=== PATIENT | female | born 1950 | race Caucasian/White ===

== ENCOUNTER → 2018-07-21 08:55 | Outpatient (BNVA) | payer MEDICARE, OTHER, SELFPAY | PROVIDERS: PCP Family Medicine; Visit Provider Orthopaedic Surgery | DX: M17.11 Unilateral primary osteoarthritis, right knee (principal) | CPT/HCPCS: 20610; 99213; J1040 ==

== ENCOUNTER → 2018-10-20 09:00 | Outpatient (BNVA) | payer MEDICARE, OTHER, SELFPAY | PROVIDERS: PCP Family Medicine; Referring Provider Family Medicine; Visit Provider Orthopaedic Surgery | DX: M17.11 Unilateral primary osteoarthritis, right knee (principal) | CPT/HCPCS: 20610; 99211; 99213; J7325 ==

== ENCOUNTER → 2019-01-19 09:12 | Outpatient (BNVA) | payer MEDICARE, OTHER, SELFPAY | PROVIDERS: PCP Family Medicine; Referring Provider Family Medicine; Visit Provider Orthopaedic Surgery | DX: M17.11 Unilateral primary osteoarthritis, right knee (principal) | CPT/HCPCS: 20610; 99211; 99212; J1040 ==

== ENCOUNTER → 2019-04-20 08:51 | Outpatient (BNVA) | payer MEDICARE, OTHER, SELFPAY | PROVIDERS: PCP Family Medicine; Referring Provider Family Medicine; Visit Provider Orthopaedic Surgery | DX: M17.11 Unilateral primary osteoarthritis, right knee (principal) | CPT/HCPCS: 20610; 99211; 99212; J1040 ==

== ENCOUNTER 2019-07-28 10:55 | Outpatient (CLI) | payer MEDICARE, OTHER, SELFPAY ==
--- NOTE | 2019-07-28 10:42 | DI.RAD_ITS ---
EXAM: XR KNEE RT 3V AP,LAT,VINICIO INDICATION: OA right knee. COMPARISON: RIGHT KNEE 3 VIEWS from 10/15/2017 TECHNIQUE: 2D digital imaging was performed. FINDINGS: Narrowing of the medial tibiofemoral joint space is identified. There is articular sclerosis. Mild m edial subluxation ofthe femur on the tibial plateau. Mild degenerative changes involving the patello femoral joint. There is no evidence of a joint effusion. IMPRESSION: Findings are consistent with severe DJD.
== END 2019-07-28 11:15 ==
PROVIDERS: PCP Family Medicine; Visit Provider Physician Assistant
DX: M25.561 Pain in right knee (principal); M17.11 Unilateral primary osteoarthritis, right knee
CPT/HCPCS: 20610; 73562; 99214; J1030

== ENCOUNTER 2019-09-21 10:41 | Outpatient (CLI) | payer MEDICARE, OTHER, SELFPAY ==
--- NOTE | 2019-09-21 08:40 | DI.RAD_ITS ---
EXAM: XR STANDING ALIGNMENT INDICATION: KNEE PAIN. COMPARISON: No exams were available for comparison TECHNIQUE: 2D digital imaging was performed. FINDINGS: In the right knee, there is moderate narrowing of the medial femoral tibial joint space. Mild periar ticular spurring is seen both medially and laterally. In the left knee, there is mild periarticular spurring and joint space narrowing medially. The right lower extremity measures 86.6 cm. The left lower extremity measures 87.5 cm. IMPRESSION: Degenerative changes in the knees bilaterally.
== END 2019-09-21 11:01 ==
PROVIDERS: PCP Family Medicine; Visit Provider Student in an Organized Health Care Education/Training Program
DX: M25.561 Pain in right knee (principal); M25.562 Pain in left knee; M17.11 Unilateral primary osteoarthritis, right knee; M21.70 Unequal limb length (acquired), unspecified site; M17.12 Unilateral primary osteoarthritis, left knee; D36.7 Benign neoplasm of other specified sites
CPT/HCPCS: 99214; 77073

== ENCOUNTER 2019-10-20 09:13 | Outpatient (CLI) | payer MEDICARE, OTHER, SELFPAY ==
[2019-10-20 10:30] LABS: HCT 40.2 % (36.0-46.0); HGB 13.5 g/dL (12.0-15.5); Mean Corp. HGB Concentration 33.6 g/dL (32.0-36.0); Mean Corpuscular Hemoglobin 31.1 pg (27.0-33.0); Mean Corpuscular Volume 92.6 fL (80-95); Mean Platelet Volume 10.2 fL (8.0-11.0); Platelet Count 257 x1000/uL (130-400); RBC 4.34 m/cumm (4.00-5.20); RBC Distribution Width 13.4 % (11.7-14.6); White Blood Cell Count 7.21 k/cumm (4.4-10.8)
[2019-10-20 11:33] LABS: Anion Gap 8.1 mmol/L (3-11); BUN 18 mg/dL (7-18); CO2 28.9 mmol/L (21.0-32.0); CREATININE 0.95 mg/dL (0.55-1.02); Calcium 8.6 mg/dL (8.5-10.1); Chloride 106 mmol/L (98-107); Estimated GFR 58.33 (mL/min/1.73m2); Glucose 76 mg/dL (74-106); Potassium 4.2 mmol/L (3.5-5.1); Sodium 143 mmol/L (136-145)
--- NOTE | 2019-10-21 14:29 | HPE_ITS ---
Date of service: 10/20/19 Assessment and Plan Assessment and plan (1) Primary osteoarthritis of right knee: Status: Chronic Assessment and plan: Right total knee replacement. Details of surgery were discussed with patient as well as risks and pertinent anatomy. All questions were answered. History of Present Illness History of Present Illness Chief Complaint: Right knee pain Narrative: Mike campuzano omes in today for a preop history and physical for a right total knee replacement. She states that she has been dealing with right knee pain for many years, but ultimately is still able to do all the activities that she likes to do. She does have pain whenever she gets into certain positions, and this includes walking up and down stairs as well as squatting and kneeling. 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 She has been treated previously by Dr. Russell for upwards of 5 years using injection therapy, but these injections have become less effective for her in the recent past. X-rays taken in the office do show severe arthritis especially in the medial compartment of the knee, but also in the patellofemoral compartment as well. She has bone spurring throughout the knee. Since she has failed conservative treatment, Dr. Cisneros does offer a right total knee replacement, and Mike is anxious to proceed. 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 This does cause a little bit of neuropathy especially down her right side, but it has been proven to be benign and since it is not causing a significant problem has not been excised. Patient denies history of hypertension, CVA, CO, angina, asthma, COPD, renal or liver disorders, hepatitis, bleeding disorders, diabetes, immune. No complications from anesthesia. Review of Systems Constitutional Constitutional: Denies fever(s) ENT Ears, Nose, Mouth, and Throat: Denies dizziness and Denies sore throat Cardiovascular Cardiovascular: Denies chest pain, Denies palpitations and Denies dyspnea Respiratory Respiratory: Denies cough and Denies dyspnea Gastrointestinal Gastrointestinal: Denies abdominal pain, Denies melena, Denies hematochezia, Denies diarrhea, Denies nausea and Denies vomiting Genitourinary Genitourinary: Denies hematuria and Denies dysuria Neurologic Neurologic: Denies dizziness Endocrine Endocrine: Denies palpitations [facility] Medical History (Updated 10/20/19 @ 09:41 by Bere Squires RN) History of Meniere's disease (Acute) History of wrist fracture (Acute) Right Hx of thyroid cancer (Inactive 12/01/15) Thyroidectomy 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) Surgical History (Updated 10/20/19 @ 10:02 by Bere Squires RN) H/O thyroidectomy (Chronic) History of back surgery (Acute) Pt states disc removal r/t Schwannoma of spinal cord History of cholecystectomy (Chronic) Social History (Updated 10/20/19 @ 07:59 by Anupama Enciso RN) Smoking/Tobacco Use Status: Never Second Hand Exposure: Yes Alcohol Intake: current Alcohol Intake frequency: holidays/special occasions only Drug use: Never Substance use type: does not use Household members: spouse Housing: house Do you need help understanding health information?: Never Current gender identity: female Meds Home Medications and Allergies Home Medications Medication Instructions Recorded Confirmed Type levothyroxine 112 mcg PO DAILY tab-cap 11/26/13 10/20/19 History multivitamin [Multi Vitamin Daily] 1 ea PO DAILY 11/26/13 10/20/19 History ovwsrvvgzul-[id number]-Adzkyzcvv serr 1 ea PO DAILY 12/05/17 10/20/19 History [Osteo Bi-Flex Caplet] cholecalciferol (vitamin D3) 1,000 1,000 unit PO DAILY 10/20/19 10/20/19 History unit capsule naproxen sodium [Aleve] 220 mg PO Q12H PRN 10/20/19 10/20/19 History Allergies Allergy/AdvReac Type Severity Reaction Status Date / Time No Known Drug Allergies Allergy Verified 10/20/19 09:26 Exam [facility] Head: normocephalic and atraumatic General nose exam: no nasal discharge Eyes Conjunctivae: conjunctivae normal Sclera: sclerae normal Resp Effort & Inspection: normal respiratory effort Auscultation: clear to auscultation bilaterally and no wheezes Cardio Rate: regular rate Rhythm: regular rhythm Heart Sounds: S1 normal, S2 normal and no murmurs GI Palpation: soft, no hepatosplenomegaly and nontender Auscultation: normal bowel sounds Results Labs Result diagrams: 10/20/19 10:10 10/20/19 10:10
== END 2019-10-20 09:33 ==
PROVIDERS: PCP Family Medicine; Visit Provider Student in an Organized Health Care Education/Training Program
DX: M25.561 Pain in right knee (principal); M17.11 Unilateral primary osteoarthritis, right knee; Z01.818 Encounter for other preprocedural examination; Z01.812 Encounter for preprocedural laboratory examination
CPT/HCPCS: 36415; 80048; 85027; NC

== ENCOUNTER → 2019-10-28 08:08 | Outpatient (BNVA) | payer MEDICARE, OTHER, SELFPAY | PROVIDERS: PCP Family Medicine; Referring Provider Family Medicine; Visit Provider Student in an Organized Health Care Education/Training Program | DX: R69 Illness, unspecified (principal) ==

== ENCOUNTER 2019-10-28 08:16 | Inpatient (IN) | payer MEDICARE, OTHER, SELFPAY ==
[2019-10-28] VITALS (13 sets, daily range): BP systolic 107–159; BP diastolic 59–94; PULSE 65–83; RESP 12–18; TEMP 36.4–36.6; O2SAT 95–99
[2019-10-28] MEDS: Gabapentin 300 MG CAP PO ×2 (09:00→21:22)
[2019-10-28] MEDS: Acetaminophen 500 MG TAB 1000 MG PO ×3 (09:00→19:31)
[2019-10-28] MEDS: Celecoxib 200 MG CAP 400 MG PO (09:00)
[2019-10-28] MEDS: Lactated Ringers 1,000 ML 80 ML IV ×3 (09:18→23:36)
[2019-10-28] MEDS: ceFAZolin 2 GM/50 ML BAG IVPB (11:20)
[2019-10-28] MEDS: Bupivacaine 0.25% Pres-Free 30 ML VIAL (12:40)
[2019-10-28] MEDS: Ketorolac 30 MG/ML VIAL (12:41)
[2019-10-28] MEDS: Normal Saline 20 ML VIAL (12:43)
[2019-10-28] MEDS: ceFAZolin 1 GM/50 ML BAG IVPB ×2 (15:55→23:36)
--- NOTE | 2019-10-28 16:05 | PT.INIE ---
Date of service: 10/28/19 Time of Service: 16:05 PT Notes Visit Reasons: RIGHT KNEE DJD Physical Therapy Inpatient Initial Evaluation Date: 10/28/2019 Referring Doctor: Luis Cisneros MD PT Orders: PT CONSULT: Status post Ortho surgery. Status post right TKA. Precautions: Fall. Standard. WBAT on right LE Patient Profile/Admitting Diagnosis: Patient is a 69-year-old female with primary unilateral osteoarthritis of right knee and is status post right total knee arthroplasty on postoperative day 0. 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 She is independent in all aspects of ADLs no need for an assistive ambulatory device contact equipment. 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 Equipment Owned/DME: 4 wheeled walker, front wheeled walker, raised toilet seat, Subjective: Patient is agreeable to a PT consult. She is pleasant and very cooperative. She reports no pain on her right knee at rest and with weight bearing. Objective: General Observation: IV in L UE, KARI wraps on R LE. TEDS on L LE. Antithromobotic device on the L leg. Cryocuff on the R knee. Mental Status: Alert and oriented x 4 Pain: 0/10 ROM: Right Upper Extremity: Shoulder Flexion WFL. Shoulder abduction WFL. Elbow flexion WFL. Wrist flexion WFL. Opening and closing of hand WFL. Left Upper Extremity: Shoulder Flexion WFL. Shoulder abduction WFL. Elbow flexion WFL. Wrist flexion WFL. Opening and closing of hand WFL. Right Lower Extremity: Hip flexion WFL. Hip abduction WFL. Knee flexion -8 to 100 degrees. Knee extension -8 degrees. Ankle dorsiflexion WFL. Ankle plantarflexion WFL. Left Lower Extremity: Hip flexion WFL. Hip abduction WFL. Knee flexion WFL. Ankle dorsiflexion WFL. Ankle plantarflexion WFL. Strength: Right Upper Extremity: Shoulder flexors 5/5. Shoulder abductors 5/5. Elbow flexors 5/5. Elbow extensors 5/5. Food [employer] Beverage Service Manager strong. Left Upper Extremity: Shoulder flexors 5/5. Shoulder abductors 5/5. Elbow flexors 5/5. Elbow extensors 5/5. Food And Beverage Service Manager strong. Right Lower Extremity: Hip flexors 5/5. Hip abductors 5/5. Knee flexors 3-/5. Knee extensors 3-/5. Ankle dorsiflexors 5/5. Ankle plantarflexors 5/5. Left Lower Extremity:Hip flexors 5/5. Hip abductors 5/5. Knee flexors 5/5. Knee extensors 5/5. Ankle dorsiflexors 5/5. Ankle plantarflexors 5/5. Sensation: Intact as to pain and pressure on bilateral lower extremities. Bed Mobility/Transfers: Rolling supervision Supine to sit supervision Sit to supine supervision Sit to stand CGA Stand to sit CGA Bed to chair CGA Chair to bed CGA Gait: Patient tolerated level surface ambulation for 80 feet using front-wheeled walker with CGA and IV pole management of PT and TICKET COUNTER Toño, did wheelchair follow. Patient demonstrated swing-through gait pattern with asymmetric step height and length. Kayley decreased. Patient denies headache, dizziness, and chest pain. Balance: Static Sitting: Normal Dynamic Sitting: Normal Static Standing: Fair Dynamic Standing: Fair Special Tests: Mobility Limitations [facility] In[facility] Short Form: Raw Score: 20 CMS Score: 36% deficit Informed Consent/Education: Patient instructed in purpose of PT consult and plan of care. Patient was instructed on hourly performance of gluteal and quadriceps setting x 10 as well as LAQs, and ankle pumping on top of skilled PT services she is receiving on admission. Assessment: Patient is a 69-year-old female with primary unilateral osteoarthritis of right knee and is status post right total knee arthroplasty on postoperative day 0 now presenting with impairment level findings and functional limitations listed below. She has a supportive . She is very motivated to return to her prior level of function. Her prognosis for regaining independent mobility level is good. Patient presents with clinical signs and symptoms consistent with current/admitting diagnoses that have resulted to mobility limitations, gait instability, generalized weakness, and impairment of motor control as demonstrated by the following impairment level findings: 1. Decreased strength to R knee major muscle groups 2. Impaired standing balance 3. Impaired activity tolerance 4. Limitation of joint range of motion in R knee Impairments are contributing to the following functional limitations: 1. Inability to safely ambulate without assistive device and physical assistance 2. Increase completion time for mobility ADL performance 3. Increased fall risk 4. Inability to negotiate steps alone safely Patient is assessed as a 83916 moderate complexity based on the following: History: Patient is a 69-year-old female with primary unilateral osteoarthritis of right knee and is status post right total knee arthroplasty on postoperative day 0 with impairment level findings, functional limitations, and past medical history listed above Examination: Demonstrable impairment in strength, balance, and range of motion with underlying impairments and functional limitations as documented above Presentation:Evolving Decision Makin moderate complexity Goals: Goals X1 week 1. Supine-Sit independent 2. Sit-Supine independent 3. Sit-Stand independent 4. Stand-Sit independent 5. Bed-Chair independent 6. Chair-Bed independent 7. Independent gait on level surface with use of least restrictive device for at least 300 feet without report of pain nor dyspnea 8. Independent stair negotiation while holding onto bilateral rails for at least 10 steps without report of pain nor dyspnea 9. Independent with home exercise program 10. Good static and dynamic standing balance/tolerance Plan of Care/Treatment Plan: 1-2x/day, 7 days/week x 1 week. Plan of care has been reviewed with the INDUSTRIAL RELATIONS WORKER providing the service under Physical Therapy direction. Initiate Physical Therapy intervention for strengthening, bed mobility, transfers, gait, stairs, balance training, use of assistive device. DISCHARGE RECOMMENDATIONS: May benefit from skilled physical therapy services according to orthopedic surgeon's timeline recommendations. Patient will be educated and trained on home exercise program per TKA exercise protocol in preparation for outpatient physical therapy services. TREATMENT CODE/TIME: 50853 x 30 minutes, 60162 x 10 minutes beginning at 16:05 PM. Thank you very much for this referral. Martine Cosme PT, DPT, CLT [facility] [place], [place]
--- NOTE | 2019-10-28 17:31 | NUR.NOTE ---
Nursing Note: Patient was admitted from PACU via her bed to Med/Surg room 218 at 1450
[2019-10-28] MEDS: Aspirin E.C. 81 MG TABEC PO (19:31)
[2019-10-28] MEDS: Celecoxib 200 MG CAP PO (19:31)
--- NOTE | 2019-10-28 22:05 | ROE_ITS ---
Date of service: 10/28/19 Time of Service: 14:06 Operative Note Operative Note DATE OF PROCEDURE: 10/28/19 PRE-OP DIAGNOSIS: Right Knee Osteoarthritis POST-OP DIAGNOSIS: same PROCEDURE: Right Total Knee Replacement SURGEON: Luis Cisneros MECHANOTHERAPIST: Lalito Valentine ANESTHESIA: GETA and regional ESTIMATED BLOOD LOSS: 200 PATHOLOGY: none sent COMPLICATIONS: None Patient was transported to: PACU Patient's condition: stable Implants: 1. Depuy Attune Posterior Stabilized Femoral Component, Size 5 2. Depuy Attune Fixed Platform Tibial Component, Size 4 3. Depuy Attune 5x6mm Fixed, Stabilized Poly 4. Depuy Attune Patellar Component, Size 35 Indications: I have seen Mike in clinic for symptoms of RIGHT knee arthritis, confirmed with radiographic findings. She has exhausted nonoperative methods and was having significant limitations in daily function and desired better function and less pain. I discussed the technical details of a knee replacement. I explained the risks of the procedure to include, but not limited to, bleeding, infection, pain, stiffness, fracture, damage to nerves and ves sels, damage to muscles and tendons, loosening, need for repeat procedure, blood clot and cardiopulmonary demise. Despite these risks, Mike elected to proceed. Findings: There was significant signs of arthritis throughout the knee. These were focused primarily over the medial compartment and the patellofemoral compartment. Procedure Description: Mike was greeted in the preoperative holding area where the correct side was identified and marked. The consent was reviewed with the patient and signed. The history and physical was updated. All questions were answered. Preoperative mediacations were administered: Acetaminophen 1000mg, Celebrex 400mg, and Gabapentin 300mg. An adductor canal block was then administered by the anesthesia team in the PACU. Mike was taken back to the operating room. A general anesthetic was then administered. Spinal anesthetic was not performed due to patient's history of a lower lumbar schwannoma. The patient was then placed into the supine position on the operating room table. A nonsterile tourniquet was placed high onto the leg but only used for cementing. Posts were placed for positioning during the procedure. All bony prominences were well padded. Prophylactic antibiotics in the form of cefazolin were administered. 1g of Tranxemic Acid wa s given intravenously within 30 minutes of incision. The right leg was then prepped with Chloraprep and draped in a standard fashion with impervious stockinette. A second prep with Chloraprep was performed prior to application of Iodine impregnated skin protection. A timeout to confirm correct identity, side and site, procedure, allergies, anesthesia, and medical concerns was performed. With the knee in some flexion, a midline incision was made overlying the knee. Full thickness skin flaps were raised once the extensor mechanism was encountered. These were raised medially and laterally. Any bleeding was controlled with electrocautery. Once the extensor mechanism was fully exposed, a medial parapatellar arthrotomy was performed in a flexed position. All bleeding from the arthrotomy and the geniculate arteries was coagulated. A medial subperiosteal peel was performed with electrocautery to the midcoronal plane. Due to the significant varus deformity the entire medial tibial plateau was exposed. The fat pad was removed while keeping the patellar tendon protected. The anterior distal femur synovium was removed for later visualization. The ACL and PCL were resected and the anterior horn of the lateral meniscus was transected. The knee was then flexed with the patella everted. Large osteophytes from the tibia were removed. Large osteophytes from the femur were removed. Using a step drill, and based on preoperative templating, the femoral canal was entered. This was done with a step drill without any difficulty. The intramedullary distal femoral cut guide was inserted, set to a 5 degree valgus cut and 9mm cut thickness. The distal femoral cut guide was then held in position and pinned. With the soft tissues protected, the distal cut was performed. This was passed over a few times to ensure a planar cut. I then turned attention to the tibia. The extramedullary guide was placed onto the leg. The distal aspect was slid medial to adjust for position of center of ankle and stay in line with shaft of the tibia. Approximately 3 degrees of posterior slope was kept in the proximal cutting guide. The center of the guide was aligned with the PCL. The stylus was used to assess cut thickness. The medial side, most involved side, was set for a 4mm cut. This was then held in position and pinned into place with 2 additional pins and a cross pin for stability. The medial and lateral collateral ligaments were protected and the cut was performed. With this completed, it was assessed and noted to be of appropriate dimensions. The guide was removed. A spacer block was inserted and the knee was brought into extension. The 6mm spacer block provided full extension, without hyperextension and with stability of both the medial and lateral collateral ligaments was assessed. The pins from the femur and the tibia were then removed. The distal femur was then sized. The anterior stylus was placed onto the lateral ridge of the anterior femur. This indicated a size 5 femur. The external rotation of the guide was adjusted to 3 degrees to match the epicondylar axis, perpendicular to [place]?s line. The 4-in-1 cutting guide was the placed. The posterior medial femur cut was evaluated and appeared of good thickness. The spacer block was inserted underneath the cutting guide and stability was confirmed in 90 degrees of flexion. An ryland wing was used to confirm appropriate position of the anterior cut to avoid notching. This cutting guide was ensured to be flush on the cut surface and then pinned into place with headed pins. While protecting the soft tissues, quad tendon, and collateral ligaments, the anterior and posterior cuts were performed with a saw. The central two pins were removed and the posterior and anterior chamfers were cut next. The notch-cutting guide was placed. This was pinned to lateralize the femoral component as much as possible while keeping it flush on the cut surface. This was then pinned into position. A reciprocating saw was used to make the notch cut. A rasp smoothed the cut surfaces. A trial posterior stabilized femoral component was then inserted, impacted down to the cut surfaces, and the lug holes were drilled. A provisional trial tibial component was placed and the knee was brought through range of motion. There was noted to be excellent extension and flexion. There was no significant instability. The patella was tracking without thumbs. The tibial cut surface was fully exposed. The medial and lateral menisci were removed. The tibia was then sized as a 4. The tibia had been previously marked during trialing to correspond to the center of the tibial component to help with rotation. The trial was aligned to this lalito, approximately rotated to the medial 1/3rd of the tibial tubercle. The trial was pinned into place. The tibia was prepared with a reamer and a keel punch. The knee was then brought into extension and the patella was measured as 25 mm. Using the patellar clamp and cut guide, this was resected to a flat surface with at least 13mm of thickness remaining. The size 35 patella fit the best. This was oriented and then clamped into position. The lugs were drilled. The trial components were removed. The final components, except for the polyethylene were opened on the back table. The periosteal and capsular tissues, especially posteriorly, around the knee were then systematically injected with a periarticular cocktail consisting of 50cc 0.25% Marcaine, 30mg Ketorolac, 20cc of Exparal and 50cc of injectable saline. The tourniquet was then inflated to 275mmHg. The knee was thoroughly irrigated with a pulse lavage and dried. On the back table, with the implants opened, the cement was mixed. 2 batches of antibiotic laden cement were prepared with vacuum assistance. After the cement was ready a small amount was placed on to the back side of the tibial component at the keel. A small amount was placed onto the posterior flange of the femur. Cement was manual pressurized and impregnated into the cut surface of the tibia. The tibial component was then inserted into the cut surface and impacted into position. Excess cement was removed and the component was reimpacted. Again, excess cement was removed and our attention was then turned to the femur. The femoral cut surface was once again dried and cement was manually impacted into the cut surface. The femoral component was lined with the lug holes and impacted. Excess cement was removed. It was ensured to be down against the cut surface. The trial polyethylene was then inserted and the leg was brought out into full extension for the duration of the cement curing process, approximately 15min. Cement was lastly manually impacted into the cut surface of the patella and the patellar button was clamped into position and held. During this process attention was turned to the gutters of the knee and for all interfaces for any excess cement. While the cement was hardening, the knee was irrigated with Irrisept chlorhexadine solution. This was allowed to sit in the knee for 3 minutes. After the cement had finally cured, approximately 15min, the clamp was removed from the patella and the knee was taken through range of motion. A size 6mm polyethylene component provided the best range of motion and stability with less than 2mm gapping with medial and lateral stress and full extension without significant hyperextension. The patella was tracking with a no-thumbs technique. The trial poly was removed and once again the knee was checked for any loose, excess, or errant cement. The poly component was then inserted and impacted into position after cleaning and drying the tibial tray. The capsule was then reapproximated with a No. 1 Vicryl at multiple locations. The capsule was finally closed with a No. 2 Stratafix, barbed suture. The tourniquet was then released and the arthrotomy appeared watertight without significant bleeding. The second dosing of 1g TXA was started. Deep tissues were then reapproximated with 0 Vicryl and 2-0 Vicryl. The skin was closed with a running 3-0 Monocryl in a subcuticular fashion. This was reinforced with skin glue. A Mepilex silver dressing was applied along with a [id number] KARI wrap. A CryoCuff was applied. Delta was transferred to the hospital bed without difficulty an suffering no apparent complication. Delta has a good prognosis. Physical therapy will start today and without restrictions, weight-bearing as tolerated. Aspirin 81mg BID will be used for DVT prophylaxis.
[2019-10-29 03:47] VITALS: BP 143/82; PULSE 83; RESP 17; TEMP 36.5; O2SAT 100
[2019-10-29] MEDS: Levothyroxine 112 MCG TAB PO (05:44)
--- NOTE | 2019-10-29 08:01 | W.PM.DS.N ---
Date of service: 10/29/19 Time of Service: 08:01 DS: Diagnosis Discharge Diagnosis (1) Primary osteoarthritis of right knee: Status: Chronic Discharge Plan Disposition Patient Disposition: HOME Condition: Good Discharge Details Reason For Visit: RIGHT KNEE DJD Admit Date/Time: 10/28/19 08:16 Admit Provider: Luis Cisneros Attending Provider: Luis Cisneros Primary Care Provider: Enriqueta Shen Hospital Course Hospital Course: Patient was admitted to the medical/surgical floor following the procedure. It was tolerated well without any notable medical, surgical, or anesthetic complications. Mobilization began postoperatively. The valdivia catheter was removed and voiding spontaneously. Vitals were stable. Physical therapy worked with the patient and was cleared for discharge home. No acute medical issues. Home Meds and New Rx's Prescriptions: New celecoxib 200 mg capsule 200 mg PO BID PRN (Reason: pain) Qty: 60 RF: 1 aspirin 81 mg tablet,delayed release (DR/EC) 81 mg PO BID Qty: 60 RF: 0 acetaminophen 500 mg tablet 1,000 mg PO Q8H PRN (Reason: pain) Qty: 90 RF: 3 pantoprazole 40 mg tablet,delayed release (DR/EC) 40 mg PO DAILY Qty: 30 RF: 0 gabapentin 300 mg capsule 300 mg PO QHS Qty: 7 RF: 0 oxycodone 5 mg tablet 5 mg PO Q4H Qty: 12 RF: 0 Continued cholecalciferol (vitamin D3) 1,000 unit capsule 1,000 unit PO DAILY RF: 0 multivitamin [Daily Multi-Vitamin] 1 EACH tablet 1 ea PO DAILY RF: 0 levothyroxine 112 MCG tablet 112 mcg PO DAILY RF: 0 [id number] serr [Osteo Bi-Flex (5-Loxin)] 1 EACH tablet 1 ea PO DAILY RF: 0 Discontinued naproxen sodium [Aleve] 220 mg Capsule 220 mg PO Q12H PRNRF: 0 Discharge Instructions Additional Instructions: Dr. Cisneros?s Total Knee Discharge Instructions Activity: The most important activity is to walk. You should try to take short walks a few times a day. It is important that when resting you work on keeping the knee straight. Avoid putting a pillow behind the knee as this will encourage flexion. Work on range of motion exercises as provided by Physical Therapy. - Start outpatient physical therapy within 2 weeks. - You should wear the SEPIDEH hose on both legs for 2 weeks. Dressing: Keep the surgical dressing in place for at least one week. After the first week it may be removed and replace with light gauze and tape or nothing. It may get wet after 3 days but avoid soaking the dressing. If it gets wet, just lightly pat dry. Medications: - You should take Tylenol and anti-inflammatory Celebrex as your primary pain control medications - You have been prescribed a stronger pain medication Oxycodone for breakthrough pain, take as needed as prescribed. - You have also been prescribed a stomach acid reduction agent Pantoprozole to help reduce stomach acid and reflux. - You will be taking Aspirin 81mg twice a day for DVT prevention unless instructed otherwise. - If you have constipation you should take Colace or Miralax (both [id number]). It takes most people 3-4 days to have a bowel movement. Follow-up: 2 weeks Referrals: Luis Cisneros MD [ [facility] STAFF PHYSICIAN] - Activity:: Activity as Tolerated Equipment/Supplies:: Walker Diet:: As Tolerated Discharge Orders Discharge Orders: Discharge Order (Routine); Ordered 10/29/19 Ordered By: Luis Cisneros DS: Summary Status at Discharge Functional status at discharge: uses cane/walker Overall status at discharge: patient is progressing back to baseline Mental Status: mental status grossly normal Speech and Movement: speech and movement normal Mood: congruent mood Affect: normal affect Exam Psych Mental Status: mental status grossly normal Speech and Movement: speech and movement normal Mood: congruent mood Affect: normal affect DS: Data Vitals/I&O Vitals and I&O: Vital Signs Temperature 36.5 C 10/29/19 03:47 Temperature Source Tympanic 10/29/19 03:47 Pulse 83 10/29/19 03:47 Pulse Rhythm Regular 10/29/19 00:38 Respiratory Rate 17 10/29/19 03:47 Respiratory Effort Non-Labored 10/29/19 00:38 Respiratory Depth Normal 10/29/19 00:38 Respiratory Pattern Normal 10/29/19 00:38 Blood Pressure 143/82 H 10/29/19 03:47 Pulse Oximetry 100 10/29/19 03:47 Respiratory End-tidal CO2 37 10/28/19 14:35 Oxygen Delivery Method Room Air 10/29/19 03:47 Oxygen Flow Rate 0 10/29/19 03:47 Pain Level 0 10/29/19 03:47 Intake & Output 10/28/19 10/28/19 10/29/19 11:59 23:59 11:59 Intake Total / 6 2015 500 / 500 Output Total 1275 / 1275 Balance 110 / 851 741 / 851 500 / 500 Weight 73.8 kg Intake: IV 110 / 1886 1776 / 1886 50 / 50 Oral 240 / 240 450 / 450 Output: Urine 1025 / 1025 Estimated Blood Loss 250 / 250 Other: Urine Color Yellow Pale Urine Appearance Clear Clear Clear Urine Odor None Emesis Description None Voiding Methods Toilet [facility] Medical History History of Meniere's disease (Acute) History of wrist fracture (Acute) Right Hx of thyroid cancer (Inactive 12/01/15) Thyroidectomy 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) Surgical History H/O thyroidectomy (Chronic) History of back surgery (Acute) Pt states disc removal r/t Schwannoma of spinal cord History of cholecystectomy (Chronic) Family History Mother RA (rheumatoid arthritis) Father Hepatitis Stomach cancer Grandmother Breast cancer Maternal Maternal Aunt Breast cancer maternal Maternal Aunt Breast cancer maternal Social History Smoking/Tobacco Use Status: Never Second Hand Exposure: Yes Alcohol Intake: current Alcohol Intake frequency: holidays/special occasions only Drug use: Never Substance use type: does not use Household members: spouse Housing: house Do you need help understanding health information?: Never Current gender identity: female
[2019-10-29 09:05] VITALS: BP 132/80; PULSE 74; RESP 16; TEMP 36.5; O2SAT 100
[2019-10-29] MEDS: Pantoprazole 40 MG TABCR PO (09:09)
[2019-10-29] MEDS: Celecoxib 200 MG CAP PO (09:09)
[2019-10-29] MEDS: Acetaminophen 500 MG TAB 1000 MG PO (09:09)
[2019-10-29] MEDS: Cholecalciferol (Vitamin D3) 1,000 UNIT TAB 1000 UNITS PO (09:10)
[2019-10-29] MEDS: Aspirin E.C. 81 MG TABEC PO (09:10)
[2019-10-29] MEDS: Multivitamin TAB 1 TAB PO (09:10)
--- NOTE | 2019-10-29 11:02 | PT.INDS ---
Date of service: 10/29/19 Time of Service: 11:02 PT Notes Visit Reasons: RIGHT KNEE DJD Inpatient Physical Therapy Discharge Summary Dates: 10/29/2019 Dates of Service: 10/28/2019 only This is a clinical summary of care provided on the duration of dates listed above. No charge was made in the completion of this documentation. Referring Doctor: Luis Cisneros MD PT Orders: PT CONSULT: Status post Ortho surgery. Status post right TKA. Precautions: Fall. Standard. WBAT on right LE At home Patient Profile/Admitting Diagnosis: Patient is a 69-year-old female with primary unilateral osteoarthritis of right knee and is status post right total knee arthroplasty on postoperative day 0. 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 She is independent in all aspects of ADLs no need for an assistive ambulatory device contact equipment. 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 Equipment Owned/DME: 4 wheeled walker, front wheeled walker, raised toilet seat, Subjective: NT Objective: General Observation: NT Mental Status: NT Pain: NT ROM: Right Upper Extremity: Shoulder Flexion WFL. Shoulder abduction WFL. Elbow flexion WFL. Wrist flexion WFL. Opening and closing of hand WFL. Left Upper Extremity: Shoulder Flexion WFL. Shoulder abduction WFL. Elbow flexion WFL. Wrist flexion WFL. Opening and closing of hand WFL. Right Lower Extremity: Hip flexion WFL. Hip abduction WFL. Knee flexion -8 to 100 degrees. Knee extension -8 degrees. Ankle dorsiflexion WFL. Ankle plantarflexion WFL. Left Lower Extremity: Hip flexion WFL. Hip abduction WFL. Knee flexion WFL. Ankle dorsiflexion WFL. Ankle plantarflexion WFL. Strength: Right Upper Extremity: Shoulder flexors 5/5. Shoulder abductors 5/5. Elbow flexors 5/5. Elbow extensors 5/5. 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 Left Upper Extremity: Shoulder flexors 5/5. Shoulder abductors 5/5. Elbow flexors 5/5. Elbow extensors 5/5. 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 Right Lower Extremity: Hip flexors 5/5. Hip abductors 5/5. Knee flexors 3-/5. Knee extensors 3-/5. Ankle dorsiflexors 5/5. Ankle plantarflexors 5/5. Left Lower Extremity:Hip flexors 5/5. Hip abductors 5/5. Knee flexors 5/5. Knee extensors 5/5. Ankle dorsiflexors 5/5. Ankle plantarflexors 5/5. Sensation: Intact as to pain and pressure on bilateral lower extremities. Bed Mobility/Transfers: Rolling supervision Supine to sit supervision Sit to supine supervision Sit to stand CGA Stand to sit CGA Bed to chair CGA Chair to bed CGA Gait: Patient tolerated level surface ambulation for 80 feet using front-wheeled walker with CGA and IV pole management of PT and ORCHARD HAND Toño, did wheelchair follow. Patient demonstrated swing-through gait pattern with asymmetric step height and length. Kayley decreased. Patient denies headache, dizziness, and chest pain. Balance: Static Sitting: Normal Dynamic Sitting: Normal Static Standing: Fair Dynamic Standing: Fair Assessment: Patient is a 69-year-old female with primary unilateral osteoarthritis of right knee and is status post right total knee arthroplasty on postoperative day 0 now presenting with impairment level findings and functional limitations listed below. She has a supportive . She is very motivated to return to her prior level of function. Her prognosis for regaining independent mobility level is good. Patient continues to present with clinical signs and symptoms consistent with current/admitting diagnoses that have resulted to mobility limitations, gait instability, generalized weakness, and impairment of motor control as demonstrated by the following impairment level findings: 1. Decreased strength to R knee major muscle groups 2. Impaired standing balance 3. Impaired activity tolerance 4. Limitation of joint range of motion in R knee Impairments continue to contribute the following functional limitations: 1. Inability to safely ambulate without assistive device and physical assistance 2. Increase completion time for mobility ADL performance 3. Increased fall risk 4. Inability to negotiate steps alone safely Goals: Goals X1 week 1. Supine-Sit independent NOT MET 2. Sit-Supine independent NOT MET 3. Sit-Stand independent NOT MET 4. Stand-Sit independent NOT MET 5. Bed-Chair independent NOT MET 6. Chair-Bed independent NOT MET 7. Independent gait on level surface with use of least restrictive device for at least 300 feet without report of pain nor dyspnea NOT MET 8. Independent stair negotiation while holding onto bilateral rails for at least 10 steps without report of pain nor dyspnea NOT MET 9. Independent with home exercise program NOT MET 10. Good static and dynamic standing balance/tolerance NOT MET DISCHARGE RECOMMENDATIONS: May benefit from skilled physical therapy services according to orthopedic surgeon's timeline recommendations. Patient will be educated and trained on home exercise program per TKA exercise protocol in preparation for outpatient physical therapy services. TREATMENT CODE/TIME: NC. Thank you very much for this referral. Martine Cosme PT, DPT, CLT [facility] [place], [place]
== END 2019-10-29 09:51 | disposition home or self-care (01) | DRG 470 ==
LOC: PDS 08:16 → MS 14:48
PROVIDERS: Admitting Provider Student in an Organized Health Care Education/Training Program; PCP Family Medicine; Visit Provider Student in an Organized Health Care Education/Training Program
PROC: 0SRC0J9 Replacement of Right Knee Joint with Synthetic Substitute, Cemented, Open Approach (ICD-10-PCS; CPT 27447; principal; 2019-10-28 10:45)
DX: M17.11 Unilateral primary osteoarthritis, right knee (principal); M25.561 Pain in right knee; Z96.651 Presence of right artificial knee joint; G89.18 Other acute postprocedural pain; E89.0 Postprocedural hypothyroidism; D36.17 Benign neoplasm of peripheral nerves and autonomic nervous system of trunk, unspecified
CPT/HCPCS: 27447; 76942; 97162; 97530; NC; J0690; J1100; J1885; J2250; J2405

== ENCOUNTER 2019-11-16 11:44 | Outpatient (CLI) | payer MEDICARE, BC, SELFPAY ==
--- NOTE | 2019-11-16 11:50 | DI.RAD_ITS ---
EXAM: XR KNEE RT 1V INDICATION: s/p R TKA. COMPARISON: XR KNEE RT 3V AP,LAT,VINICIO from 07/28/2019 XR STANDING ALIGNMENT from 11/16/2019 TECHNIQUE: 2D digital imaging was performed. FINDINGS: The patient is status post total knee prosthesis. The components appear well aligned. No abnormal b jasmyn lucencies are seen.
--- NOTE | 2019-11-16 11:53 | DI.RAD_ITS ---
EXAM: XR STANDING ALIGNMENT INDICATION: s/p R TKA. COMPARISON: XR STANDING ALIGNMENT from 09/21/2019 XR KNEE RT 1V from 11/16/2019 TECHNIQUE: 2D digital imaging was performed. FINDINGS: The hip joint spaces are well maintained. There is no significant leg length discrepancy at the leve l of the femoral heads. There is a right knee prosthesis. There is narrowing of the medial femoral tibial joint of left knee. The ankle joint spaces are well maintained.
== END 2019-11-16 12:04 ==
PROVIDERS: PCP Family Medicine; Referring Provider Family Medicine; Visit Provider Student in an Organized Health Care Education/Training Program
DX: Z96.651 Presence of right artificial knee joint (principal); Z47.1 Aftercare following joint replacement surgery
CPT/HCPCS: 73560; 77073

== ENCOUNTER → 2019-12-14 10:49 | Outpatient (BNVA) | payer MEDICARE, BC, SELFPAY | PROVIDERS: PCP Family Medicine; Referring Provider Family Medicine; Visit Provider Student in an Organized Health Care Education/Training Program | DX: Z47.1 Aftercare following joint replacement surgery (principal); Z96.651 Presence of right artificial knee joint ==

== ENCOUNTER → 2020-01-25 09:28 | Outpatient (BNVA) | payer MEDICARE, BC, SELFPAY | PROVIDERS: PCP Family Medicine; Referring Provider Family Medicine; Visit Provider Student in an Organized Health Care Education/Training Program | DX: Z47.1 Aftercare following joint replacement surgery; Z96.651 Presence of right artificial knee joint ==

== ENCOUNTER → 2020-04-18 11:02 | Outpatient (BNVA) | payer MEDICARE, BC, SELFPAY | PROVIDERS: PCP Family Medicine; Referring Provider Family Medicine; Visit Provider Student in an Organized Health Care Education/Training Program | DX: M65.4 Radial styloid tenosynovitis [de Quervain] (principal); Z96.651 Presence of right artificial knee joint | CPT/HCPCS: 20605; 99213; J1030 ==

== ENCOUNTER 2020-10-31 11:25 | Outpatient (CLI) | payer MEDICARE, BC, SELFPAY ==
--- NOTE | 2020-10-31 08:45 | DI.RAD_ITS ---
EXAM: XR KNEE RT 2V AP,LAT CLINICAL HISTORY: R TKA. TECHNIQUE: 2D digital imaging was performed. COMPARISON: CR XR KNEE RT 3V AP,LAT,VINICIO from 07/28/2019 CR XR STANDING ALIGNMENT from 11/16/2019 CR XR KNEE RT 1V from 11/16/2019 FINDINGS: BONES: There are stable post operative changes present. No fracture or dislocation. JOINTS: The joint spaces are well maintained. No joint effusion is present. SOFT TISSUE: Normal. IMPRESSION: Stable postoperative changes. DATA REPOSITORY: RADIATION DOSE DELIVERED:
== END 2020-10-31 11:45 ==
PROVIDERS: PCP Family Medicine; Referring Provider Family Medicine; Visit Provider Student in an Organized Health Care Education/Training Program
DX: Z96.651 Presence of right artificial knee joint (principal); Z47.1 Aftercare following joint replacement surgery
CPT/HCPCS: 99213; 73560

== ENCOUNTER 2020-11-24 15:10 | Outpatient (REF) | payer MEDICARE, BC, SELFPAY ==
[2020-11-25 15:26] LABS: COVID-19 RT-PCR Result NEGATIVE (Negative)
== END 2020-11-24 15:30 ==
LOC: NCHCN 15:10
PROVIDERS: PCP Family Medicine; Visit Provider Nurse Practitioner Family
DX: Z20.822 Contact with and (suspected) exposure to COVID-19 (principal)
CPT/HCPCS: U0003

== ENCOUNTER 2021-06-19 01:54 | Outpatient (CLI) | payer MEDICARE, BC, SELFPAY ==
--- NOTE | 2021-06-19 10:00 | DI.MAMMO_ITS ---
Exam(s) MAMMO SCREENING EXAM: MAMMO SCREENING CLINICAL HISTORY: screening TECHNIQUE: Mammograms were interpreted according to the usual protocol including computer analysis w VHX CAD system, tomosynthesis and C-view imaging. COMPARISON: 2012 through 2017 FINDINGS: The breasts are composed of scattered fibroglandular densities, Breast Density category B. No suspicious masses or suspicious microcalcifications are seen. No skin thickening or abnormal axillary lymph nodes are seen. There has been no significant change from prior exams. IMPRESSION: BI-RADS Category 1, Negative mammogram Yearly screening mammography is recommended. Breast Density - Category B, scattered fibroglandular densities. A negative radiographic report should not delay biopsy if a dominant or clinically suspicious mass is present. Up to ten percent of cancers are not identified on mammography. A negative report may reinforce clinical impression. Adenosis and dense breasts may obscure an underlying neoplasm. False positive reports average 6 to 10%. Patient will receive a letter notifying them of these results.
== END 2021-06-19 02:14 ==
PROVIDERS: PCP Family Medicine; Visit Provider Nurse Practitioner Family
DX: Z12.31 Encounter for screening mammogram for malignant neoplasm of breast (principal)
CPT/HCPCS: 77063; 77067

== ENCOUNTER 2023-04-29 02:44 | Outpatient (CLI) | payer MEDICARE, BC, SELFPAY ==
--- NOTE | 2023-04-29 07:00 | DI.MAMMO_ITS ---
Exam(s) MAMMO SCREENING EXAM: MAMMO SCREENING CLINICAL HISTORY: screening, Z12.39 TECHNIQUE: Mammograms were interpreted according to the usual protocol including computer analysis w [employer] CAD system, tomosynthesis and C-view imaging. COMPARISON: 2013 through 2020 FINDINGS: The breasts are composed of scattered fibroglandular densities, Breast Density category B. No suspicious masses or suspicious microcalcifications are seen. No skin thickening or abnormal axillary lymph nodes are seen. There has been no significant change from prior exams. IMPRESSION: BI-RADS Category 1, Negative mammogram Yearly screening mammography is recommended. Breast Density - Category B, scattered fibroglandular densities. A negative radiographic report should not delay biopsy if a dominant or clinically suspicious mass is present. Up to ten percent of cancers are not identified on mammography. A negative report may reinforce clinical impression. Adenosis and dense breasts may obscure an underlying neoplasm. False positive reports average 6 to 10%. Patient will receive a letter notifying them of these results.
== END 2023-04-29 03:04 ==
LOC: DI 02:45
PROVIDERS: PCP Registered Nurse Critical Care Medicine; Visit Provider Obstetrics & Gynecology
DX: Z12.31 Encounter for screening mammogram for malignant neoplasm of breast (principal)
CPT/HCPCS: 77063; 77067

== ENCOUNTER 2025-02-17 13:52 | Outpatient (REF) | payer MEDICARE, BC, SELFPAY ==
--- NOTE | 2025-02-17 07:38 | SKI_PTH ---
PATIENT: Mike Kaminski LOC: [facility] U#:[id number] AGE/SX: 74/F ROOM: RE02/17/[address]: Mega Amato MD : 1950 BED: DIS: 02/17/2025 SPEC #: [id number] RECD: 02/17/25 17:52 STATUS: SKYLAR REQ #: [id number] [place]: 02/17/25 07:[address]: Mega Amato DEPT: Surgical Specimen RECD BY: Daily Flynn ENTERED: 02/17/25 17:52 SP TYPE: CLARITZA ROBLERO DR: Cristela Mayes Tissues: 1 - SKIN BIOPSY(SHAVE/PUNCH) Procedures: SKIN LEVEL 4 Comments: [id number]
== END 2025-02-17 13:53 | disposition home or self-care (01) ==
LOC: LBN 13:52
PROVIDERS: PCP Registered Nurse Critical Care Medicine; Visit Provider Otolaryngology
DX: L98.9 Disorder of the skin and subcutaneous tissue, unspecified (principal); D04.9 Carcinoma in situ of skin, unspecified; L73.9 Follicular disorder, unspecified
CPT/HCPCS: 88305

== ENCOUNTER 2025-03-18 00:48 | Outpatient (CLI) | payer MEDICARE, BC, SELFPAY ==
--- NOTE | 2025-03-18 | DI.MAMMO_ITS ---
Exam(s) MAMMO SCREENING EXAM: MAMMO SCREENING CLINICAL HISTORY: screening. TECHNIQUE: Bilateral full field digital CC and MLO mammographic images were obtained with 3D tomosyn thesis and utilizing computer aided detection (CAD). COMPARISON: Prior mammograms were reviewed. FINDINGS: No CAD designations. A left upper quadrant skin mole or lesion is noted with markers. There are no new spiculated masses nor malignant appearing microcalcification groups. There is no significant architectural distortion nor skin thickening-retraction. IMPRESSION: Benign findings. No radiographic evidence of malignancy. BI-RADS Category 2 - Benign Findings Breast Density - Category B - There are scattered areas of fibroglandular density. Breast density Category C or D implies that the patient has dense breast tissue. Dense breast tissue can make it harder to find cancer on a mammogram. Dense breast tissue is also associated with an incr eased risk of breast cancer. This information about the result of the mammogram report was provided to the patient to raise their awareness. Use this report when you speak with the patient about their risks for breast cancer, which includes their family history. At that time, you may recommend additional screening tests (Ultrasoun d or MRI) as these tests may add significant information. A negative radiographic report should not delay biopsy if a dominant or clinically suspicious mass is present. Up to ten percent of cancers are not identified on mammography. A negative report may reinforce clinical impression. Adenosis and dense breasts may obscure an underlying neoplasm. False positive reports average 6 to 10%. Patient will receive a letter notifying them of these results.
== END 2025-03-18 01:08 ==
LOC: DI 00:48
PROVIDERS: PCP Registered Nurse Critical Care Medicine; Visit Provider Obstetrics & Gynecology
DX: Z12.31 Encounter for screening mammogram for malignant neoplasm of breast (principal); R92.323 Mammographic fibroglandular density, bilateral breasts; D24.2 Benign neoplasm of left breast
CPT/HCPCS: 77063; 77067